=== PATIENT | female | born 1985 | race Caucasian/White ===

== ENCOUNTER 2019-02-04 05:27 | Inpatient (IN) | payer BC ==
[2019-02-04 06:11] VITALS: BMI 27.4
[2019-02-04] MEDS ORDERED: Promethazine HCl 25 MG/ML VIAL IM PRN ×2 (06:21→07:52)
[2019-02-04] MEDS ORDERED: Ondansetron PF 4 MG/2 ML Vial IVP PRN ×3 (06:21→10:59)
[2019-02-04] MEDS ORDERED: hydrALAZINE 20 MG/ML VIAL SLOW IVP PRN ×2 (06:21→10:59)
[2019-02-04] MEDS ORDERED: Lidocaine 1% (PF) 30 ML VIAL SC PRN (06:21)
[2019-02-04] MEDS ORDERED: NS / Oxytocin 40 units/1000ml 1,000 ML IV PRN (06:21)
[2019-02-04] MEDS ORDERED: Lactated Ringer's 1,000 ML IV SCH (06:30)
--- NOTE | 2019-02-04 07:02 | PDOC.FPROB ---
FMR OB H&P: HPI - History of Present Illness Chief Complaint: Contractions Indentification: 33yo at 38.4wks History of Present Illness: 33yo at 38.4wks presents for contractions since 11pm last night, became more painful and frequent at 0430. Denies VB, LOF. Reports losing mucus plug overnight. Endorses movement. Denies BURRIS, vision changes, edema. 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 - Surgical History Sx History: None - Social History Social History: Denies tobacco, alcohol and drug use - Family History Family History: FOB- 1st cousin MR Aunt/Uncle- [facility]- pt not a carrier FMR OB H&P: Medications - Current Home Medications: Medication Instructions Recorded Confirmed Type No Known 02/04/19 02/04/19 History Allergies/Adverse Reactions: Allergies Allergy/AdvReac Type Severity Reaction Status Date / Time penicillin G Allergy Verified 02/04/19 06:12 FMR OB H&P: ROS - Review of Systems General: denies: fever/chills, fatigue Eyes: denies: vision changes, double vision, scotomas ENT: denies: nasal congestion, rhinorrhea Cardiovascular: denies: chest pain, palpitation Respiratory: denies: congestion, shortness of breath Gastrointestinal: denies: nausea, vomiting Genitourinary (Female): reports: contractions, vaginal pressure. denies: dysuria Musculoskeletal: denies: pain, swelling Integumentary: denies: itching, rash FMR OB H&P: Vital Signs - Maternal Vital signs: Vital Signs - First Documented Temp Pulse Resp BP Pulse Ox 98.2 F 98 14 126/89 100 02/04/19 06:05 02/04/19 06:05 02/04/19 06:05 02/04/19 06:05 02/04/19 06:05 - Heart Tones Baseline: 140 Variability: moderate Acceleration: present Deceleration: absent Category: category 1 [place] contractions every: 2-4 min FMR OB H&P: Physical Exam - Physical Exam General: NAD, awake, alert and oriented HEENT: normocephalic and atraumatic, MMM, conjunctiva clear, grossly normal hearing, oropharynx clear Neck: supple, trachea midline Heart: RRR, no murmurs/rubs/gallops General: CTAB, no respiratory distress, no wheezing Abdomen: soft, gravid, non-tender, bowel sound present Musculoskeletal: pulses present, FROM in all four extremities, no misalignment/ asymmetry Neurological: no focal deficit Skin: no rash, good tugor Psychiatric: intact recent and remote memory, good judgement and insight, normal mood and affect - Pelvic Exam SVE: /-2 FMR OB H&P: A/P Disposition: 33yo at 38.4wks presents in active labor sIUP - SVE /-2 - GBS negative - FHTs 140 Cat 1 - Pt desires epidural - Continue serial cervical checks - Admit to L&D - Will notify Dr Miranda Discussion: Date/Time: 02/04/19 0659 This H&P was discussed with Dr. Uriarte who agrees with the above documentation and plan. Addendum - Attending - Attending Attestation Date/Time: 02/04/19 0726 I personally evaluated the patient and discussed the management with Dr. Aranda. I agree with the History, Examination, Assessment and Plan documented above.
[2019-02-04 07:03] LABS: Hemoglobin 13.4 g/dL (12.0-16.0); Mean Corpuscular HGB CONC 34.7 g/dL (32.0-36.0); Mean Corpuscular Hemoglobin 31.5 pg (27.0-31.0); Mean Corpuscular Volume 90.7 fL (78.0-98.0); Mean Platelet Volume 8.4 fL (7.4-10.4); Platelet Count 232 thou/uL (130-400); RBC Distribution Width 12.6 % (11.5-14.5); Red Blood Cell (RBC) Count 4.24 mill/uL (4.20-5.40); White Blood Cell (WBC) Count 13.4 thou/uL (4.8-10.8)
[2019-02-04] MEDS ORDERED: Fentanyl 4 mcg/Bup 0.1% Cadd 100 ML ONE (07:04)
[2019-02-04 07:45] LABS: HBSAg Index 0.15 S/CO (0-0.99); Hep B Surf Ag Non-Reactive S/CO (NonReactive); Syphilis Antibody Nonreactive (Nonreactive); Syphilis Antibody Index 0.06 S/CO (<1.00 Non-Reactive)
[2019-02-04] MEDS ORDERED: Acetaminophen 325 MG TAB PO PRN (07:52)
[2019-02-04] MEDS ORDERED: ePHEDrine/0.9% NaCl/PF SYRINGE 50 mg/10 ml SLOW IVP PRN (07:52)
[2019-02-04] MEDS ORDERED: Lactated Ringer's 500 ML IV PRN (07:52)
[2019-02-04] MEDS ORDERED: Naloxone HCl 0.4 mg/ml Vial IVP PRN ×2 (07:52)
[2019-02-04] MEDS ORDERED: diphenhydrAMINE 50 MG/ML VIAL IVP PRN (07:52)
[2019-02-04] MEDS ORDERED: Fentanyl 4 mcg/Bupivacaine 0.1% Cassette 100 ML EPIDURAL SCH (08:00)
[2019-02-04] MEDS ORDERED: Communication Order-Pharmacy FS SCH (08:00)
--- NOTE | 2019-02-04 09:09 | PDOC.LDPN ---
Labor & Delivery Progress Note - Subjective Subjective: comfortable - Objective Vital signs reviewed and normal: yes General: NAD Uterine fundus: non tender HOODE: [place] Dilation: 7 Effacement: 100% Station: 0 FHT: category 1, variability present [place] contractions every: q1-4 min AROM: clear fluid (8:30 AM) Plan: continue plan of care
[2019-02-04] MEDS ORDERED: NS w/ Oxytocin 10 units 500 ML ONE (09:13)
--- NOTE | 2019-02-04 09:45 | PDOC.OPDEL ---
OB Operative/Delivery Note Delivery Dr/Surgeon: Ruben Assist: n/a Pre-Delivery Diagnosis: active labor Procedure/Post Delivery Dx: spontaneous vaginal delivery Weeks gestation: 38 Anesthesia: epidural - Findings A Sex: male - 1 min: 9 - 5 min: 9 - Additional Findings/Plan Placenta delivered: spontaneous Repaired Obstetrical Laceration: none Estimated blood loss: 100cc Post delivery plan: routine recovery
[2019-02-04] MEDS ORDERED: Preparation H Ointment 28 GM TUBE PR PRN (10:59)
[2019-02-04] MEDS ORDERED: Milk Of Magnesia 30 ML UDCUP PO PRN (10:59)
[2019-02-04] MEDS ORDERED: Lanolin Ointment 7 GM TUBE TOP PRN (10:59)
[2019-02-04] MEDS ORDERED: Bisacodyl 10 MG SUPP PR PRN (10:59)
[2019-02-04] MEDS ORDERED: diphenhydrAMINE 25 MG CAP PO PRN (10:59)
[2019-02-04] MEDS ORDERED: NS / Oxytocin 40 units/1000ml 1,000 ML IV SCH (10:59)
[2019-02-04] MEDS ORDERED: Bupivacaine HCl 0.25%/Epi 0.0005/PF 10 ML VIAL FS ONE (11:11)
[2019-02-04] MEDS: Ibuprofen 800 MG TAB PO SCH ×2 (15:59→21:32)
[2019-02-04] MEDS: Ferrous Sulfate 325 MG TAB PO SCH (16:00)
[2019-02-04] MEDS: Docusate Calcium (SURFAK) 240 MG CAP PO SCH (21:32)
[2019-02-05] MEDS: Ibuprofen 800 MG TAB PO SCH ×2 (05:29→16:13)
[2019-02-05 07:56] VITALS: BP 102/61; TEMP 98.1
--- NOTE | 2019-02-05 08:10 | PDOC.PP ---
Post Progress Note Post Day #: 1 PO intake tolerated: yes Flatus: yes Ambulation: yes Vital Signs (12 hours) Temp Pulse Resp BP Pulse Ox 02/05/19 07:55 98.1 F 81 20 102/61 95 02/05/19 05:38 98.0 F 97 18 112/66 96 02/05/19 00:17 98.1 F 89 16 109/60 95 Weight Weight 170 lb - Physical Examination General: NAD Respiratory: non-labored breathing Abdominal: no distention, appropriately TTP Fundus firm & at: umb Extremities: negative homans (B) Neurological: no gross focal deficits Psychiatric: normal affect Result Diagrams: 02/04/19 06:55 Additional Labs: Post Labs Blood Type O POSITIVE 02/04/19 07:22 Hep Bs Antigen Non-Reactive S/CO (NonReactive) 02/04/19 06:55 - Assessment/Plan PPD1 s/p TSVD VSSAF Doing well lochia < menses Rh pos RImm DC home FU 6w
[2019-02-05] MEDS: Docusate Calcium (SURFAK) 240 MG CAP PO SCH (08:27)
[2019-02-05] MEDS ORDERED: Adacel (T-DAP) 0.5 ML SYRINGE IM ONE (09:00)
[2019-02-05] MEDS ORDERED: Prenatal Vitamin 1 TAB PO SCH (09:00)
[2019-02-05] MEDS: Ferrous Sulfate 325 MG TAB PO SCH (14:47)
== END 2019-02-05 17:20 | disposition home or self-care (01) | DRG 807 ==
LOC: L&D/OP 05:27 → L&D 07:30 → 3SE 13:32
PROVIDERS: ADMIT Student in an Organized Health Care Education/Training Program; ATTEND Student in an Organized Health Care Education/Training Program
PROC: 10E0XZZ Delivery of Products of Conception, External Approach (ICD-10-PCS; principal; 2019-02-04)
DX: O80 Encounter for full-term uncomplicated delivery (principal); Z37.0 Single live birth; Z3A.38 38 weeks gestation of pregnancy; Z88.0 Allergy status to penicillin; Z67.40 Type O blood, Rh positive
CPT/HCPCS: 36415; 51702; 85027; 86780; 86850; 86900; 86901; 87340; 99285; J2590

== ENCOUNTER 2024-02-02 10:16 | Outpatient (CLI) | payer OTHER | END 2024-02-02 10:17 | disposition home or self-care (01) | LOC: BICMAMMO 10:16 | PROVIDERS: ATTEND Nurse Practitioner Family | DX: Z12.31 Encounter for screening mammogram for malignant neoplasm of breast (principal); Z80.3 Family history of malignant neoplasm of breast | CPT/HCPCS: 77063; 77067 ==

== ENCOUNTER 2024-02-08 08:35 | Outpatient (CLI) | payer OTHER | END 2024-02-08 08:36 | disposition home or self-care (01) | LOC: BICMAMMO 08:35 | PROVIDERS: ATTEND Nurse Practitioner Family | DX: N64.89 Other specified disorders of breast (principal) | CPT/HCPCS: G0279 ==